=== PATIENT | male | born 1975 | race American Indian/Alaskan Native ===

== ENCOUNTER 2018-11-18 00:15 | Emergency (ER) | payer SELFPAY ==
[2018-11-18 00:21] VITALS: BP 143/93
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
[2018-11-18] MEDS ORDERED: IBUPROFEN PO ONE (01:54)
[2018-11-18] MEDS ORDERED: DELTASONE PO ONE (02:13)
[2018-11-18] MEDS ORDERED: TORADOL IM ONE (02:13)
== END 2018-11-18 03:15 | disposition home or self-care (01) ==
LOC: ED 00:15
DX: R07.89 Other chest pain (principal); E66.9 Obesity, unspecified; I10 Essential (primary) hypertension; J45.909 Unspecified asthma, uncomplicated; Z79.899 Other long term (current) drug therapy; V49.49XA Driver injured in collision with other motor vehicles in traffic accident, initial encounter; Y93.89 Activity, other specified; Y92.410 Unspecified street and highway as the place of occurrence of the external cause; Y99.8 Other external cause status
CPT/HCPCS: 93005; 93010; 96372; 99282; J1885; J7512

== ENCOUNTER 2018-11-30 00:54 | Emergency (ER) | payer SELFPAY ==
[2018-11-30] MEDS ORDERED: NACL 0.9% 1000 ML 1,000 ML IV ONE (01:04)
[2018-11-30] MEDS ORDERED: ceFAZolin 2 GM in NACL 0.9% 100 ML IV ONE (01:04)
[2018-11-30] MEDS ORDERED: NACL 0.9% 1000 ML 1,000 ML ONE (01:07)
[2018-11-30] MEDS ORDERED: NACL 0.9% 1000 ML 2,000 ML ONE (01:08)
[2018-11-30 01:13] LABS: Hematocrit 41.6 % (35.5-45.6); Mean Corpuscular HGB Conc 34 % (32-34); Mean Corpuscular Volume 86 fl (84-94); Platelet Count 256 K/mm3 (140-440); Red Blood Count 4.84 M/mm3 (3.65-5.03); Red Cell Distribution Width 16.2 % (13.2-15.2)
[2018-11-30 01:29] LABS: Alanine Aminotransferase 32 units/L (7-56); Albumin 3.8 g/dL (3.9-5); BUN/Creatinine Ratio 10; Blood Urea Nitrogen 15 mg/dL (9-20); Calcium 9.2 mg/dL (8.4-10.2); Hemolysis Index 60
[2018-11-30 01:30] LABS: INR 0.99 (0.87-1.13)
[2018-11-30 01:31] LABS: Partial Thromboplastin Time 23.5 Sec. (24.2-36.6)
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
[2018-11-30] MEDS ORDERED: NACL 0.9% 1000 ML 2,000 ML IV ONE (01:45)
[2018-11-30 02:50] LABS: Basophils % (Manual) 0 % (0.0-1.8); Platelet Estimate Consistent w Auto; RBC Morphology Normal; Total Cells Counted 100
[2018-11-30 03:18] VITALS: BP 99/54
== END 2018-11-30 01:45 | disposition other institution (70) ==
LOC: ED 00:54
DX: S52.201A Unspecified fracture of shaft of right ulna, initial encounter for closed fracture (principal); S31.139A Puncture wound of abdominal wall without foreign body, unspecified quadrant without penetration into peritoneal cavity, initial encounter; I10 Essential (primary) hypertension; J45.909 Unspecified asthma, uncomplicated; W34.00XA Accidental discharge from unspecified firearms or gun, initial encounter; Y93.89 Activity, other specified; Y92.89 Other specified places as the place of occurrence of the external cause; Y99.8 Other external cause status
CPT/HCPCS: 36415; 71045; 73090; 74018; 80053; 85007; 85025; 85610; 85730; 86850; 86900; 86901; 86920; J0690; J7030; P9016; 36430; 80320; 96365; G0480